=== PATIENT | female | born 1980 | race Two or more races ===

== ENCOUNTER 2021-06-09 08:22 | Inpatient (IN) | payer OTHER ==
[~2021-06-09] VITALS: Ht 165.1 cm; Wt 90.1 kg
[2021-06-11 12:21] VITALS: BP 132/87
== END 2021-06-11 16:08 | disposition home or self-care (01) | DRG 65 ==
LOC: ED 08:52 → EDIP 13:48 → 4EST 16:17
PROVIDERS: ADMIT Internal Medicine; ATTEND Family Medicine
DX: I63.9 Cerebral infarction, unspecified (principal); G81.91 Hemiplegia, unspecified affecting right dominant side; E11.65 Type 2 diabetes mellitus with hyperglycemia; R47.01 Aphasia; E66.9 Obesity, unspecified; I10 Essential (primary) hypertension; R13.0 Aphagia; Z68.33 Body mass index [BMI] 33.0-33.9, adult